=== PATIENT | male | born 1955 | race Caucasian/White ===

== ENCOUNTER 2018-11-26 17:54 | Emergency (ER) | payer OTHER ==
[~2018-11-26] VITALS: Ht 170.2 cm; Wt 63.5 kg
[2018-11-26 18:14] VITALS: BP 142/104
--- NOTE | 2018-11-26 19:15 | NUR ---
TO ED 01 WITH STEADY GAIT.
--- NOTE | 2018-11-26 19:29 | NUR ---
PT TO ED WITH C/O BILATERAL LEG AND HIP PAIN X 2 WEEKS. PT DENIES INJURY OR TRAUMA. NO OBVIOUS DEFORMITY NOTED. PT REPORTS DIFFICULTY SLEEPING DUE TO PAIN. PT PLACED INTO BED, PENDING MD FREEMAN.
[2018-11-26] MEDS ORDERED: HYDROcodone/APAP 7.5/325 MG 1 TAB PO ONE (20:05)
[2018-11-26] MEDS ORDERED: ONDANSETRON 4 MG ODT PO ONE (20:05)
[2018-11-26] MEDS ORDERED: ONDANSETRON 4 MG ODT PO SCH (21:00)
[2018-11-26] MEDS ORDERED: HYDROcodone/APAP 7.5/325 MG 1 TAB PO SCH (21:00)
[2018-11-26] MEDS ORDERED: KETOROLAC 60 MG/2 ML VIAL IM ONE (21:15)
--- NOTE | 2018-11-26 21:30 | NUR ---
PT REPORTING RELIEF OF PAIN. ER MD AWARE.
[2018-11-26 22:08] VITALS: BP 134/89
== END 2018-11-26 22:08 | disposition home or self-care (01) ==
LOC: MED 17:54
DX: M54.5 Low back pain (principal); E11.9 Type 2 diabetes mellitus without complications; Z90.89 Acquired absence of other organs
CPT/HCPCS: 81002; 96372; 99283; J1885; Q0162